=== PATIENT | female | born 1950 | race Caucasian/White ===

== ENCOUNTER 2025-07-05 11:06 | Outpatient (AMB) | payer MEDICARE, SELFPAY ==
--- OUTSIDE RECORDS SUMMARY | 2025-07-05 12:45 | XMS_ITS | Clinical Summary ---
Author Organization [facility] Address [address] [place] [address] Phone Care Team Providers Care Trade Promotion Analyst Name Role Phone Timothy Felder MD Primary Care Provider [phone] Social History Tobacco Use Types Packs/Day Years Used Date Smoking Tobacco: Never Assessed Comments Unknown Sex and Gender Information Value Date Recorded Sex Assigned at Female 12/20/2024 1:48 PM EST Legal Sex Female 10:01 PM EST Gender Identity Female 12/20/2024 1:48 PM EST Sexual Orientation Straight 12/20/2024 1: 48 PM EST Plan of Treatment Health Maintenance Due Date Last Done Comments Breast Cancer Screening 1950 DTaP,Tdap,and Td Vaccines (1 - Tdap) 1971 Colorectal Cancer Screening: Colonoscopy 10/17/2022 Falls Risk Assessment 10/17/2022 Hepatitis C Screening 10/17/2022 Medicare Annual Wellness Visit 10/17/2022 Osteoporosis Screening (Bone Density Screening) 10/17/2022 Social Influencers of Health Screening 10/17/2022 Depression Screening 11/15/2024 COVID-19 Vaccine ( season) 2025 08/07/2024, 02/02/2024, 08/27/2022, Additional history exists Influenza Vaccine (#1) 2025 , 08/24/2023, 08/27/2022, Additional history exists Zoster Vaccines Completed 05/26/2023, 12/08/2022 RSV Immunization Adult Patients Completed 08/24/2023 Pneumococcal Vaccine: 50+ Years Completed 02/02/2024, 09/30/2019 HIB Vaccines Aged Out No longer eligi ble based on patient's age to complete this topic HPV Vaccines Aged Out No longer eligi ble based on patient's age to complete this topic Hepatitis A Vaccines Aged Out No long er eligible based on patient's age to complete this topic Hepatitis B Vaccines Aged Out No long er eligible based on patient's age to complete this topic IPV Vaccines Aged Out No longer eligi ble based on patient's age to complete this topic MMR Vaccines Aged Out No longer eligi ble based on patient's age to complete this topic Meningococcal ACWY Vaccine Aged Out N o longer eligible based on patient's age to complete this topic Meningococcal B Vaccine Aged Out No l onger eligible based on patient's age to complete this topic RSV Immunization Patients Under 20 months Aged Out No longer eligible based on patient's age to complete this topic Varicella Vaccines Aged Out No longer eligible based on patient's age to complete this topic Insurance MEDICARE [facility] Care Teams Trade Promotion Analyst Relationship Specialty Start Date End Date Timothy Felder MD [address] [facility] [address] [place], [place] PCP - General Internal Medicine 12/05/21
== END 2025-07-05 14:05 | disposition home or self-care (01) ==
LOC: HO.HMGAL 11:06
PROVIDERS: Visit Provider Registered Nurse Emergency
DX: J30.89 Other allergic rhinitis (principal)
CPT/HCPCS: 95117; 95165

== ENCOUNTER 2025-08-06 10:36 | Outpatient (AMB) | payer MEDICARE, SELFPAY ==
--- OUTSIDE RECORDS SUMMARY | 2025-08-06 13:00 | XMS_ITS | Clinical Summary ---
Author Organization [facility] Address [address] [place] [address] Phone Care Team Providers Care Restaurant Assistant Manager Name Role Phone Timothy Felder MD Primary Care Provider [phone] Social History Tobacco Use Types Packs/Day Years [...] MEDICARE [facility] Care Teams Restaurant Assistant Manager Relationship Specialty Start Date End Date Timothy Felder MD [address] [facility] [address] [place], [place] PCP - General Internal Medicine 12/05/21
== END 2025-08-06 10:40 | disposition home or self-care (01) ==
LOC: HO.HMGAL 10:36
PROVIDERS: PCP Internal Medicine; Visit Provider Registered Nurse Emergency
DX: J30.89 Other allergic rhinitis (principal)
CPT/HCPCS: 95117; 95165

== ENCOUNTER 2025-09-10 13:27 | Outpatient (AMB) | payer MEDICARE, SELFPAY ==
--- OUTSIDE RECORDS SUMMARY | 2025-09-10 17:09 | XMS_ITS | Clinical Summary ---
Author Organization [facility] Address [address] [place] [address] Phone Care Team Providers Care Stone Spreader Operator Name Role Phone Timothy Felder MD Primary Care Provider [phone] Social History Tobacco Use Types Packs/Day Years [...] Last Done Comments Breast Cancer Screening 1950 Colorectal Cancer Screening: Colonoscopy 1950 DTaP,Tdap,and Td Vaccines (1 - Tdap) 1971 Falls Risk Assessment 10/17/2022 Hepatitis C Screening [...] age to complete this topic Insurance MEDICARE [facility] Care Teams Stone Spreader Operator Relationship Specialty Start Date End Date Timothy Felder MD [address] [facility] [address] [place], [place] PCP - General Internal Medicine 12/05/21
== END 2025-09-10 13:28 | disposition home or self-care (01) ==
LOC: HO.HMGAL 13:27
PROVIDERS: PCP Internal Medicine; Visit Provider Registered Nurse Emergency
DX: J30.89 Other allergic rhinitis (principal)
CPT/HCPCS: 95117; 95165

== ENCOUNTER 2025-10-15 12:00 | Outpatient (AMB) | payer MEDICARE, SELFPAY ==
--- OUTSIDE RECORDS SUMMARY | 2025-10-15 15:48 | XMS_ITS | Clinical Summary ---
Author Organization [facility] Address [address] [place] [address] Phone Care Team Providers Care Student Success Counselor Name Role Phone Timothy Felder MD Primary Care Provider [phone] Social History Tobacco Use Types Packs/Day Years [...] age to complete this topic Insurance MEDICARE [facility] [[email or web address]] Care Teams Student Success Counselor Relationship Specialty Start Date End Date Timothy Felder MD [address] [facility] [address] [place], [place] PCP - General Internal Medicine 12/05/21
== END 2025-10-15 12:00 | disposition home or self-care (01) ==
LOC: HO.HMGAL 12:00
PROVIDERS: PCP Internal Medicine; Visit Provider Registered Nurse Emergency
DX: J30.89 Other allergic rhinitis (principal)
CPT/HCPCS: 95117; 95165